=== PATIENT | female | born 1990 | race Two or more races ===

== ENCOUNTER 2020-06-18 18:02 | Emergency (ER) | payer OTHER ==
[~2020-06-18] VITALS: Ht 149.9 cm; Wt 53.6 kg
[2020-06-18] MEDS ORDERED: ACETAMINOPHEN 500 MG TABLET ONE (18:36)
--- NOTE | 2020-06-18 18:49 | NUR ---
PT HAS CO BODY RASH, SORE/SWOLLEN THROAT, FEVER SINCE WEDNESDAY, RASH STARTED THIS AM. PT ON BACTRIM AND FLAGYL FOR VAG INFECTION. NEAR FINISHED W ABX. PT HAS CHEST PAIN WHEN BREATHING. PT ON STOCK DRIER TENDER, ST 140S. NOT IN DISTRESS. PIV, MEDICATED PER ORDERS. IVF. BLOOD CULTURES DRAWN.
--- NOTE | 2020-06-18 18:57 | NUR ---
REPORT FROM HERMINIO MESSER.
[2020-06-18 18:58] LABS: BASOPHILS % (AUTO) 0 % (0-1); EOSINOPHILS % (AUTO) 3 % (1-7); LYMPHOCYTES % (AUTO) 7 % (22-44); MEAN CORPUSCULAR HEMOGLOBIN 29.8 pg (27.0-34.8); MEAN CORPUSCULAR HGB CONC 33.3 g/dL (32.4-35.8); MEAN PLATELET VOLUME 9.9 fL (7.4-10.4); MONOCYTES % (AUTO) 9 % (2-9); NEUTROPHILS % (AUTO) 81 % (42-75); PLATELET COUNT 198 x10^3/uL (130-400); RED BLOOD COUNT 4.79 x10^6/uL (3.82-5.3); RED CELL DISTRIBUTION WIDTH 13.9 % (9.6-15.2)
[2020-06-18] MEDS ORDERED: SODIUM CHLORIDE 0.9% 1,000ML IVBOLUS ONE ×2 (19:00→20:00)
[2020-06-18] MEDS ORDERED: ACETAMINOPHEN 500 MG TABLET PO ONE (19:00)
[2020-06-18 19:04] LABS: ANION GAP 7 mmol/L (5-15); CALCIUM 8.3 mg/dL (8.5-10.1); CHLORIDE 107 mmol/L (98-107); CREATININE 0.91 mg/dL (0.55-1.02)
[2020-06-18 19:07] LABS: RAPID INFLUENZA A Negative (Negative); RAPID INFLUENZA B Negative (Negative)
[2020-06-18 19:09] LABS: ALANINE AMINOTRANSFERASE 23 U/L (12-78); ALKALINE PHOSPHATASE 99 U/L (45-117); BILIRUBIN,TOTAL 0.3 mg/dL (0.2-1.0); TOTAL PROTEIN 7.7 g/dL (6.4-8.2)
[2020-06-18 19:11] LABS: MD NO
[2020-06-18] MEDS ORDERED: IBUPROFEN 600 MG TABLET ONE (19:58)
[2020-06-18] MEDS ORDERED: IBUPROFEN 600 MG TABLET PO ONE (20:00)
[2020-06-18 22:00] VITALS: BP 100/61
== END 2020-06-18 22:21 | disposition home or self-care (01) ==
LOC: ED 18:41
DX: J02.9 Acute pharyngitis, unspecified (principal); Z20.822 Contact with and (suspected) exposure to COVID-19; R05 Cough; R21 Rash and other nonspecific skin eruption; R50.9 Fever, unspecified; R00.0 Tachycardia, unspecified
CPT/HCPCS: 36415; 71045; 80053; 84145; 85025; 86308; 87040; 87400; 87635; 93005; 96360; 99285; J7030

== ENCOUNTER 2020-06-19 18:55 | Emergency (ER) | payer OTHER ==
[~2020-06-19] VITALS: Ht 149.9 cm; Wt 52.8 kg
[2020-06-19 18:58] VITALS: BP 108/66
== END 2020-06-19 19:41 | disposition home or self-care (01) ==
LOC: ED 19:20
DX: R21 Rash and other nonspecific skin eruption (principal); R50.9 Fever, unspecified; R05 Cough; R00.0 Tachycardia, unspecified; J02.9 Acute pharyngitis, unspecified
CPT/HCPCS: 99281

== ENCOUNTER 2021-01-09 11:03 | Emergency (ER) | payer OTHER ==
[~2021-01-09] VITALS: Ht 149.9 cm; Wt 49.5 kg
[2021-01-09 11:28] VITALS: BP 98/62
--- NOTE | 2021-01-09 11:34 | NUR ---
EKG IN TRIAGE
--- NOTE | 2021-01-09 12:22 | NUR ---
ER PA at bedside for eval.
--- NOTE | 2021-01-09 13:19 | NUR ---
dc instructions reviewed
== END 2021-01-09 13:24 | disposition home or self-care (01) ==
LOC: ED 13:00
DX: J06.9 Acute upper respiratory infection, unspecified (principal); Z20.822 Contact with and (suspected) exposure to COVID-19; R07.89 Other chest pain
CPT/HCPCS: 71045; 93005; 99285; U0003; U0005